=== PATIENT | male | born 1990 | race Caucasian/White ===

== ENCOUNTER 2019-06-26 07:55 | Emergency (ER) | payer OTHER ==
--- NOTE | 2019-06-26 08:19 | EDM.PDOC ---
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 Per EMS all vital signs normal patient is in no respiratory distress Patient states he had no issues last night are none earlier this morning waking up he denies any trouble swallowing states he ate breakfast this morning had a couple cigarettes but quit this morning he threw his pack out the window after the signs and symptoms started He denies any headache fever chills no sore throat prior to this morning no neck pain or stiffness no trouble breathing or swallowing Duration: Hour(s): Quality: Reports: Other (Sore and scratchy about a 6 out of 10) Severity: Mild Improves with: Reports: Other (Time) Associated Symptoms: Reports: No Other Symptoms ED ROS ENT - Review of Systems Review Of Systems: See Below Constitutional: Reports: No Symptoms. Denies: Fever, Chills, Malaise, Weakness HEENT: Reports: Throat Swelling. Denies: Dental Pain, Ear Discharge, Ear Pain, Eye Pain, Nose Pain, Sinus Problem, Throat Pain, Vertigo, Vision Change Respiratory: Reports: No Symptoms. Denies: Shortness of Breath, Pleuritic Chest Pain, Cough Cardiovascular: Reports: No Symptoms Endocrine: Reports: No Symptoms GI/Abdominal: Reports: No Symptoms Musculoskeletal: Reports: No Symptoms Skin: Reports: No Symptoms Neurological: Reports: No Symptoms. Denies: Dizziness, Headache, Syncope, Trouble Speaking, Weakness, Change in Speech Psychiatric: Reports: No Symptoms Hematologic/Lymphatic: Reports: No Symptoms Immunologic: Reports: No Symptoms ED EXAM, ENT - Physical Exam Exam: See Below Exam Limited By: No Limitations General Appearance: Alert, WD/WN, No Apparent Distress, Other (Patient has normal speech no apparent distress whatsoever talking 20 word sentences no issues noted able to hold saliva and swallow with no issues) Eye Exam: Bilateral Eye: EOMI, PERRL Ears: Normal External Exam, Normal Canal, Hearing Grossly Normal, Normal TMs, Other (Right tympanic membrane not able to visualize secondary to cerumen impaction left within normal limits) Nose: Normal Inspection, Normal Mucousa, No Blood Mouth/Throat: Normal Inspection, Normal Gums, Normal Lips, Normal Oropharynx, Normal Teeth. No: Dry Mucous Membrane, Lip Swelling (Patient has no exudate no erythema positive postnasal drainage noted in Line uvula no edema to the tonsils ), Muffled Voice, Peritonsillar Mass, Pharyngeal Erythema, Throat Swelling, Tonsillar Erythema, Tonsillar Exudates, Tonsillar Swelling, Uvular Deviation Head: Atraumatic, Normocephalic Neck: Normal Inspection, Supple, Non-Tender, Full Range of Motion. No: Lymphadenopathy (L) (No cervical adenopathy has full range of motion negative Brudzinski's negative Kernig's), Lymphadenopathy (R) Respiratory/Chest: No Respiratory Distress, Lungs Clear, Normal Breath Sounds Cardiovascular: Normal Peripheral Pulses, Regular Rate, Rhythm, No Edema, No Gallop, No JVD, No Murmur, No Rub GI/Abdominal: Normal Bowel Sounds, Soft, Non-Tender, No Organomegaly, No Distention Back: Full Range of Motion Extremities: Normal Inspection, Normal Range of Motion, Non-Tender, Normal Capillary Refill Neurological: Alert, Oriented, CN II-XII Intact, Normal Cognition, Normal Gait, No Motor/Sensory Deficits Psychiatric: Normal Affect, Normal Mood Skin: Warm, Intact, Normal Color, No Rash Course - Vital Signs Text/Narrative:: Patient looks well no acute distress with normal speech no signs of any respiratory issues He was instructed to gargle with warm salt water every 3-4 hours as needed He may take [id number]-[id number] allergy medicine of his choice Zyrtec Claritin Gwendolyn follow directions on the bottle Follow-up with his primary care provider in the next 24 to 48 hours secondary to he is going home to [place] states he will be there day Departure - Departure Time of Disposition: 08:35 Disposition: Home, Self-Care 01 Condition: Good Clinical Impression: Pharyngitis - Discharge Information *PRESCRIPTION DRUG MONITORING PROGRAM REVIEWED*: No *COPY OF PRESCRIPTION DRUG MONITORING REPORT IN PATIENT ROSELIA: No Instructions: Pharyngitis, [id number] Forms: ED Department Discharge Additional Instructions: gargle with warm salt water every 3-4 hours as needed for the next 3 to 4 days you may take [id number] allergy medicine of his choice Zyrtec Claritin Gwendolyn follow directions on the bottle Follow-up with your primary care provider in the next 24 to 48 hours secondary to he is going home to [place] states he will be there today Return to the emergency room if anything gets worse or changes or go to the nearest emergency room at your location if anything changes or gets worse Sepsis Event Note - Focused Exam Date Exam was Performed: 06/26/19 Time Exam was Performed: 08:25 - Problem List & Annotations (1) Pharyngitis SNOMED Code(s): 745942049 Code(s): J02.9 - ACUTE PHARYNGITIS, UNSPECIFIED Status: Acute
== END 2019-06-26 09:10 | disposition home or self-care (01) ==
LOC: VM.ED 07:55
DX: J02.9 Acute pharyngitis, unspecified (principal)
CPT/HCPCS: 99283